=== PATIENT | male | born 1975 | race Caucasian/White ===

== ENCOUNTER → 2016-12-12 | Outpatient (CLI) | payer BC ==
[~2016-12-12] MED LIST: LIPITOR; LISINOPRIL; NEXIUM PO; REGLAN10 MG PO; TYLOX 5/500 CAP1 CAP PO; TYLOX1 CAP 5/50 DOB
--- NOTE | ~2016-12-12 | CT2 ---
[facility] A Service of [facility] RADIOLOGY TEXT RESULTS PATIENT: BONIFACIO MAJANO JR LOCATION: [facility] : 71 UNIT #: [id number] AGE: [address]: Ken Stoddard MD SEX: M ORDER DR: [id number] [facility] [address] [place], [place] [address] [id number] O MR#: [id number] Acc #: [id number] NAME: BONIFACIO MAJANO JR : 1975 SEX: M STUDY DATE/TIME: 12/12/2016 10:14 UNIT: [facility] ROOM: STUDY DESCRIPTION: CT Abd and Pelv W Cont Attending Physician: Ken Stoddard Jr., M.D. Referring Physician: Ken Stoddard Jr., M.D. Ordering Physician: Ken Stoddard Jr., M.D. Primary Care Physician: Ny Carbajal M.D. MEDICAL IMAGING REPORT This report is preliminary unless electronic signature is present EXAM CT abdomen and pelvis with contrast INDICATIONS Upper abdominal and left lower quadrant abdominal with left groin pain for the past year. Concern for recurrent inguinal hernia. PROCEDURE Contrast-enhanced CT of the abdomen and pelvis. 100 mL of Isovue-370. COMPARISON None. This CT exam was performed with one or more of the following radiation dose reduction techniques: automatic exposure control, adjustment of mA and/or kV according to patient size, and iterative reconstruction. FINDINGS Abdomen with contrast: Included lung bases are clear. Liver enlarged measuring 20.8 cm. Diffuse hepatic steatosis. 9 mm enhancing focus in the left hepatic lobe. The spleen, kidneys, adrenal glands, pancreas and gallbladder unremarkable. Moderate colonic stool. Appendix is normal. Pelvis with contrast: No pelvic mass or fluid. Previous left inguinal hernia repair with no evidence for reherniation. No aggressive appearing bone lesion. IMPRESSION 1. Previous left inguinal hernia repair. No evidence for reherniation. 2. Moderate colonic stool. [facility] A Service of [facility] RADIOLOGY TEXT RESULTS PATIENT: GRETEL,BONIFACIO E JR LOCATION: [facility] : 71 UNIT #: [id number] AGE: [address]: Ken Stoddard MD SEX: M ORDER DR: 3. Hepatomegaly with significant steatosis. 4. 9 mm nodule in the lateral segment of the left hepatic lobe. Nonspecific but in the absence of any known malignancy it probably represents a small hemangioma. It could be further characterized with MRI or multiphase CT if desired clinically. Dictated by... Mc Austin M.D. THIS IS AN ELECTRONICALLY VERIFIED REPORT Mc Austin M.D. at 12/16/2016 7:02 AM Mary TD: 12/12/2016 13:27 JOB #: [id number] MEDICAL IMAGING REPORT COPY
[2016-12-12 09:31] LABS: POC - CREATININE 1.27 mg/dL (0.64-1.27); POC - GFR >60.0 mL/min (>60)
== END | disposition home or self-care (01) ==
LOC: CCAT 08:55
PROVIDERS: Surgery
DX: K40.90 Unilateral inguinal hernia, without obstruction or gangrene, not specified as recurrent (principal); R10.32 Left lower quadrant pain; K76.0 Fatty (change of) liver, not elsewhere classified; R16.0 Hepatomegaly, not elsewhere classified; K76.89 Other specified diseases of liver; Z98.890 Other specified postprocedural states
CPT/HCPCS: 74177; 82565; Q9967

== ENCOUNTER 2017-03-02 18:43 | Emergency (ER) | payer BC ==
--- NOTE | ~2017-03-02 | CR282 ---
[facility]. [facility] A Service of [facility] [place] [facility] RADIOLOGY TEXT RESULTS PATIENT: BONIFACIO MAJANO JR LOCATION: SED : 71 UNIT #: [id number] AGE: [address]: NELSY PEREZ SEX: M ORDER DR: [id number] [place] [id number] E MR#: [id number] Acc #: [id number] NAME: BONIFACIO MAJANO JR : 1975 SEX: M STUDY DATE/TIME: 03/02/2017 19:14 UNIT: SED ROOM: STUDY DESCRIPTION: CR Wrist Min 3 View Rt Attending Physician: Nelsy Perez Ordering Physician: Physician Non-Staff Primary Care Physician: Ny Carbajal M.D. MEDICAL IMAGING REPORT This report is preliminary unless electronic signature is present. EXAM Right wrist 3 views 03/02/2017 HISTORY Right wrist pain status post punching a wall yesterday. FINDINGS Wrist evaluation in multiple projections shows normal mineralization of the bony structures about the wrist and satisfactory articular relationship of the radius and ulna to the proximal carpal row and of the distal carpal segments to the metacarpal bases. There is no indication of fracture or dislocation, and no soft tissue radiopaque foreign body is present. No congenital defects are apparent. IMPRESSION Normal wrist. Dictated by... Venu Carroll M.D. THIS IS AN ELECTRONICALLY VERIFIED REPORT Venu Carroll M.D. at 03/03/2017 10:41 AM DARLENE/kaylin TD: 03/03/2017 06:15 JOB #: [id number] MEDICAL IMAGING REPORT Page 1 of 1
--- NOTE | ~2017-03-02 | CR142 ---
[facility] A Service of [facility] RADIOLOGY TEXT RESULTS PATIENT: BONIFACIO MAJANO JR LOCATION: SED : 71 UNIT #: [id number] AGE: [address]: NELSY PEREZ SEX: M ORDER DR: [id number] [place] [id number] E MR#: [id number] Acc #: [id number] NAME: BONIFACIO MAJANO JR : 1975 SEX: M STUDY DATE/TIME: 03/02/2017 19:14 UNIT: SED ROOM: STUDY DESCRIPTION: CR Hand Min 3 Views Rt Attending Physician: Nelsy Perez Ordering Physician: Yonathan Clayton M.D. Primary Care Physician: Ny Carbajal M.D. MEDICAL IMAGING REPORT This report is preliminary unless electronic signature is present. EXAM Right hand 3 views 03/02/2017 HISTORY Right hand pain after punching a wall yesterday. FINDINGS AP, lateral, and oblique projections of the hand show good mineralization with normal carpal, metacarpal, and phalangeal anatomy without indication of fracture, dislocation, or soft tissue radiopaque foreign body. IMPRESSION Normal hand. Dictated by... Venu Carroll M.D. THIS IS AN ELECTRONICALLY VERIFIED REPORT Venu Carroll M.D. at 03/03/2017 10:41 AM DARLENE/kaylin TD: 03/03/2017 06:37 JOB #: [id number] MEDICAL IMAGING REPORT Page 1 of 1
[~2017-03-02 18:43] MED LIST changes: -LIPITOR; -LISINOPRIL
[2017-03-02] MEDS ORDERED: LISINOPRIL (18:50)
[2017-03-02] MEDS ORDERED: LIPITOR (18:51)
== END 2017-03-02 19:57 | disposition home or self-care (01) ==
LOC: SED 18:43
DX: S60.221A Contusion of right hand, initial encounter (principal); I10 Essential (primary) hypertension; E78.5 Hyperlipidemia, unspecified; W22.8XXA Striking against or struck by other objects, initial encounter
CPT/HCPCS: 29125; 73110; 73130; 99283